=== PATIENT | male | born 2000 | race African-American/Black ===

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

== ENCOUNTER 2021-10-05 21:30 | Emergency (ER) | payer SELFPAY ==
[~2021-10-05] VITALS: Ht 175 cm; Wt 67.0 kg
[~2021-10-05 21:30] MED LIST changes: +CYCL10TA25 PO; -CYCL10TA9 PO; +IBUP-1780 PO
[2021-10-05] MEDS ORDERED: IBUPROFEN 800 MG (MOTRIN) TAB PO ONE (22:00)
[2021-10-05] MEDS ORDERED: ONDANSETRON 4 MG (ZOFRAN) ORAL DISSOLVE TAB PO ONE (22:00)
--- NOTE | 2021-10-05 22:05 | ED Cough/URI ---
General Chief Complaint: General Problems/Pain Stated Complaint: STOMACH PAIN/VOMITING/FEVER Source: patient Exam Limitations: no limitations History of Present Illness Date Seen by Provider: Oct 05, 2021 Time Seen by Provider: 21:46 Initial Comments Patient to ER by private conveyance chief complaint that he is having 1 day of cough leading to nausea and vomiting. He has little bit epigastric pain when he vomits. He has had 3 episodes of vomiting in the last 24 hours. No diarrhea fevers or chills. He has had subjective feeling like he is hot. No significant medical or surgical history. He has not taken anything to attenuate his symptoms. He has not had any tests or seen anywhere. Allergies and Home Medications Allergies Coded Allergies: No Known Drug Allergies (Unverified , 06/28/18) Patient Home Medication List Home Medication List Reviewed: Yes Cyclobenzaprine HCl (Cyclobenzaprine HCl) 10 Mg Tablet, 10 MG PO Q8H PRN for SPASMS Prescribed by: OSKAR LESTER on 06/25/18 0941 Ibuprofen (Ibuprofen) 800 Mg Tablet, 800 MG PO Q8H Prescribed by: OSKAR LESTER on 07/03/18 1201 Review of Systems Review of Systems Constitutional: No chills, No diaphoresis EENTM: nose congestion; No ear discharge, No hearing loss, No ear pain, No throat swelling Respiratory: No dyspnea on exertion, No hemoptysis Cardiovascular: No chest pain, No palpitations Gastrointestinal: abdominal pain; No constipation, No diarrhea; loss of appetite, nausea, vomiting Genitourinary: No discharge, No dysuria Musculoskeletal: No back pain, No joint pain All Other Systems Reviewed Negative Unless Noted: Yes Past Vkmapca-Dwudqh-Uolxya Hx Patient Social History Tobacco Use?: Yes Tobacco type used: Cigarettes Smoking Status: Current Everyday Smoker Substance use?: Yes Substance type: Marijuana Substance frequency: Several times a month Alcohol Use?: Yes Alcohol type: Hard Liquor Alcohol Frequency: Rarely Pt feels they are or have been: No Immunizations Up To Date PED Vaccines UTD: Yes Influenza Vaccine Up-to-Date: No; Not Current Seasonal Allergies Seasonal Allergies: No Past Medical History Surgeries: No Respiratory: No Cardiac: No Neurological: No Reproductive Disorders: No Sexually Transmitted Disease: No Genitourinary: No Gastrointestinal: No Musculoskeletal: No Back Injury Endocrine: No HEENT: No Cancer: No Psychosocial: Yes ADD/ADHD Integumentary: No Blood Disorders: No Physical Exam Vital Signs - First Documented 10/05/21 21:45 Temp 37.8 Pulse 93 Resp 18 B/P (MAP) 137/76 (96) Pulse Ox 94 O2 Delivery Room Air Capillary Refill : Height: 5'9.00" Weight: 143lbs. oz. 64.961574bp; 21.09 BMI Method:Stated General Appearance: WD/WN, no apparent distress Eyes: Bilateral Eye Normal Inspection, Bilateral Eye PERRL, Bilateral Eye EOMI HEENT: PERRL/EOMI, pharynx normal Neck: full range of motion, normal inspection Respiratory: no respiratory distress, no accessory muscle use Cardiovascular: normal peripheral pulses, regular rate, rhythm, tachycardia (100) Gastrointestinal: non tender, soft Neurologic/Psychiatric: alert, normal mood/affect, oriented x 3 Skin: normal color, warm/dry Progress/Results/Core Measures Suspected Sepsis SIRS Temperature: Pulse: Respiratory Rate: Blood Pressure / Mean: Results/Orders Lab Results Laboratory Tests Test 10/05/21 22:05 Range/Units Influenza Type A (RT-PCR) Detected H Not Detecte Influenza Type B (RT-PCR) Not Detected Not Detecte SARS-CoV-2 RNA (RT-PCR) Not Detected Not Detecte My Orders Orders - OSKAR LESTERid 19 Inhouse Test (10/05/21 21:58) Influenza A And B By Pcr (10/05/21 21:58) Ondansetron Oral Dissolve Tab (Zofran (10/05/21 22:00) Ibuprofen Tablet (Motrin Tablet) (10/05/21 22:00) Medications Given in ED Current Medications Medications Dose Ordered Sig/Prateek Route Start Time Stop Time Status Last Admin Dose Admin Ibuprofen 800 mg ONCE ONCE PO 10/05/21 22:00 10/05/21 22:01 DC 10/05/21 22:10 800 MG Ondansetron HCl 4 mg ONCE ONCE PO 10/05/21 22:00 10/05/21 22:01 DC 10/05/21 22:10 4 MG Vital Signs/I&O 10/05/21 21:45 Temp 37.8 Pulse 93 Resp 18 B/P (MAP) 137/76 (96) Pulse Ox 94 O2 Delivery Room Air Capillary Refill : Progress Note : Time: 22:13 Progress Note 4 mg Zofran ODT and 800 mg of ibuprofen. Covid and influenza swab. Patient has aseptic vital signs and none nonsurgical abdomen likely a viral gastroenteritis. Departure Impression Primary Impression: Influenza A Disposition: 01 HOME, SELF-CARE Condition: Stable Departure-Patient Inst. Decision time for Depature: 22:50 Referrals: NO,LOCAL PHYSICIAN (PCP/Family) Primary Care Physician Patient Instructions: Flu, Adult (DC) Add. Discharge Instructions: You have influenza which often causes get symptoms in addition to coughing. Typically last 7 to 14 days. You may have body aches. Tylenol 1000 mg every 8 hours as necessary for fever and body aches. Ibuprofen 800 mg every 8 hours as necessary for fever and body aches. Salt water gargles for sore throat. Zofran 1 tablet every 6 hours as needed for nausea and/or vomiting. Place it under your tongue and allow to dissolve. You may also use Pepto-Bismol or Imodium if you develop diarrhea. If you have more stomach pain you can use antacids such as Tums, Rolaids, simethicone, Maalox etc. Tamiflu 1 capsule twice a day for the next 5 days may reduce the duration and severity of symptoms by 1 or 2 days. Tamiflu will be sent to the pharmacy if you wish to start it tomorrow morning. All discharge instructions reviewed with patient and/or family. Voiced understanding. Scripts Ondansetron (Ondansetron Odt) 4 Mg Tab.rapdis 4 MG PO Q6H PRN for NAUSEA/VOMITING, #10 TAB 0 Refills Prov: OSKAR LESTER 10/05/21 Oseltamivir Phosphate (Tamiflu) 75 Mg Cap 75 MG PO BID for 5 Days, #10 CAP 0 Refills Prov: OSKAR LESTER 10/05/21 Work/School Note: Work Release Form Date Seen in the Emergency Department: Oct 05, 2021 Return to Work: Oct 12, 2021 Restrictions: Return-No Fever (24hrs) OSKAR LESTER Oct 05, 2021 22:05
[2021-10-05] MEDS ORDERED: ONDA4TAB11 PO (22:55)
[2021-10-05] MEDS ORDERED: OSLT75C PO (22:55)
[2021-10-05 23:05] VITALS: BP 124/74
== END 2021-10-05 23:05 | disposition home or self-care (01) ==
LOC: EDUNIT# 21:30 → ER 21:32
DX: J10.1 Influenza due to other identified influenza virus with other respiratory manifestations (principal); F17.210 Nicotine dependence, cigarettes, uncomplicated; Z20.822 Contact with and (suspected) exposure to COVID-19
CPT/HCPCS: 87636; 99283

== ENCOUNTER 2023-04-17 11:48 | Emergency (ER) | payer SELFPAY ==
[~2023-04-17] VITALS: Ht 167.7 cm; Wt 68.0 kg
[~2023-04-17 11:48] MED LIST changes: +ONDA4TAB11 PO; +OSLT75C PO
[2023-04-17] MEDS ORDERED: TETANUS,DIPTH,PERTUSS P/F (BOOSTRIX) 0.5 ML VIAL IM ONE (12:00)
[2023-04-17] MEDS ORDERED: LIDOCAINE 1% INJ 20 ML VIAL INJ ONE (12:00)
--- NOTE | 2023-04-17 12:01 | ED Upper Extremity ---
General Chief Complaint: Upper Extremity Stated Complaint: LT HAND INJ | BASKETBALL Source: patient Exam Limitations: no limitations History of Present Illness Date Seen by Provider: Apr 17, 2023 Time Seen by Provider: 11:54 Initial Comments 22-year-old male presents to the ER for a laceration to his left hand. States he fell while playing basketball just prior to arrival. Uncertain of his last tetanus. Allergies and Home Medications Allergies Coded Allergies: No Known Drug Allergies (Unverified , 06/28/18) Patient Home Medication List Home Medication List Reviewed: Yes Cyclobenzaprine HCl (Cyclobenzaprine HCl) 10 Mg Tablet, 10 MG PO Q8H PRN for SPASMS Prescribed by: OSKAR LESTER on 06/25/18 0941 Ibuprofen (Ibuprofen) 800 Mg Tablet, 800 MG PO Q8H Prescribed by: OSKAR LESTER on 07/03/18 1201 Ondansetron (Ondansetron Odt) 4 Mg Tab.rapdis, 4 MG PO Q6H PRN for NAUSEA/VOMITING Prescribed by: OSKAR LESTER on 10/05/21 2255 Oseltamivir Phosphate (Tamiflu) 75 Mg Cap, 75 MG PO BID Prescribed by: OSKAR LESTER on 10/05/21 2255 Review of Systems Constitutional: see HPI Past Kmqwgww-Tvqrdh-Rskkuw Hx Immunizations Up To Date PED Vaccines UTD: Yes Seasonal Allergies Seasonal Allergies: No Past Medical History Surgeries: No Respiratory: No Cardiac: No Neurological: No Reproductive Disorders: No Sexually Transmitted Disease: No Genitourinary: No Gastrointestinal: No Musculoskeletal: No Back Injury Endocrine: No HEENT: No Cancer: No Psychosocial: Yes ADD/ADHD Integumentary: No Blood Disorders: No Physical Exam Vital Signs Vital Signs - First Documented 04/17/23 11:53 Temp 36.0 Pulse 69 Resp 18 B/P (MAP) 135/82 (99) O2 Delivery Room Air Capillary Refill : Height, Weight, BMI Height: 5'9.00" Weight: 143lbs. oz. 64.773778su; 21.00 BMI Method:Stated General Appearance: WD/WN, no apparent distress Neck: supple, normal inspection Cardiovascular: regular rate, rhythm Respiratory: lungs clear, normal breath sounds, no respiratory distress, no accessory muscle use Wrist: Yes normal inspection, Yes non-tender, Yes no evidence of injury, Yes normal ROM Hand: normal ROM, Left, abrasions, laceration Neurologic/Psychiatric: alert, normal mood/affect Skin: normal color, warm/dry Procedures/Interventions Wound Location: Upper Extremities Other Wound Location Palm of left hand Wound Length (cm): 3 Wound's Depth, Shape: linear Irrigated w/ Saline (ccs): 300 Anesthesia: 1% Lidocaine Volume Anesthetic (ccs): 6 Wound Debrided: moderate Suture: Chromic, Ethlion Suture Size: 4-0 Layer Closure?: 2 Progress Layer closure with two 5-0 Chromic Gut sutures, wound closure with nine 4-0 Ethilon sutures Progress/Results/Core Measures Results/Orders My Orders Orders - LINDSAY IRWIN UNBUNDLER Dipht,Pertuss(Acell),Tet Adult (Boostrix (04/17/23 12:00) Lidocaine 1% Inj 20 Ml (Xylocaine 1% Inj (04/17/23 12:00) Medications Given in ED Current Medications Medications Dose Ordered Sig/Prateek Route Start Time Stop Time Status Last Admin Dose Admin Diphtheria/ Tetanus/Acell Pertussis 0.5 ml ONCE ONCE IM 04/17/23 12:00 04/17/23 12:01 DC 04/17/23 12:10 0.5 ML Lidocaine HCl 20 ml ONCE ONCE INJ 04/17/23 12:00 04/17/23 12:01 DC 04/17/23 12:10 20 ML Vital Signs/I&O 04/17/23 11:53 Temp 36.0 Pulse 69 Resp 18 B/P (MAP) 135/82 (99) O2 Delivery Room Air Progress Progress Note : Progress Note Patient seen and evaluated, resting comfortably in bed, no acute distress. Laceration to left hand will need repaired. Abrasions also noted to left hand. Will update tetanus. Considered x-ray of hand, the patient has full range of motion and no bony tenderness. I am not concerned of tendon injury either due to full range of motion, no visible tendon in the laceration. 1248 laceration repaired, see procedure note. Discharge instructions and return precautions provided. Departure Impression Primary Impression: Laceration Disposition: 01 HOME, SELF-CARE Condition: Stable Departure-Patient Inst. Decision time for Depature: 12:49 Referrals: NO,LOCAL PHYSICIAN (PCP/Family) Primary Care Physician Patient Instructions: Laceration Repair With Stitches (DC) Add. Discharge Instructions: Sutures need to be removed in 7 to 10 days, you can return here, go to urgent care, or see your primary care provider for this. Keep the wound clean and dry, you may wash your hands, let water and soap run over your hand, but do not soak your hand. You may apply Neosporin to the abrasion on your hand and cover with bandage. Return for signs of infection including redness, swelling, discolored odorous drainage, or any other new, concerning, or worsening symptoms. All discharge instructions reviewed with patient and/or family. Voiced understanding. LINDSAY IRWIN APRN Apr 17, 2023 12:00
[2023-04-17 12:54] VITALS: BP 122/67
== END 2023-04-17 12:54 | disposition home or self-care (01) ==
LOC: EDUNIT# 11:48 → ER 11:50
DX: S61.412A Laceration without foreign body of left hand, initial encounter (principal); Z23 Encounter for immunization; Z28.310 Unvaccinated for COVID-19; W18.30XA Fall on same level, unspecified, initial encounter; Y92.310 Basketball court as the place of occurrence of the external cause; Y93.67 Activity, basketball
CPT/HCPCS: 12002; 90715